=== PATIENT | male | born 1990 | race Caucasian/White ===

== ENCOUNTER 2017-04-20 09:11 | Emergency (ER) | payer OTHER ==
[~2017-04-20] VITALS: Ht 172.7 cm; Wt 105.0 kg
[~2017-04-20 09:11] MED LIST: ALBU0.63 NEB
[2017-04-20] MEDS ORDERED: DIAZEPAM 5 MG TABLET ONE (09:58)
[2017-04-20] MEDS ORDERED: KETOROLAC 30 MG/1 ML ONE (09:58)
[2017-04-20] MEDS ORDERED: KETOROLAC 60 MG/2 ML IM ONE (10:00)
[2017-04-20] MEDS ORDERED: DIAZEPAM 5 MG TABLET PO ONE (10:00)
[2017-04-20 10:18] LABS: HEMATOCRIT 46.3 % (39.2-51.8); HEMOGLOBIN 15.6 g/dL (13.7-18.0); WHITE BLOOD COUNT 7.7 x10^3/uL (3.4-10)
[2017-04-20 10:30] LABS: BLOOD UREA NITROGEN 9 mg/dL (7-18)
[2017-04-20 10:35] LABS: IS PT STATUS REG ER OR PRE ER? YES
[2017-04-20 11:31] VITALS: BP 125/75
== END 2017-04-20 11:33 | disposition home or self-care (01) ==
LOC: ED 11:20
DX: R07.89 Other chest pain (principal); F41.9 Anxiety disorder, unspecified; J45.909 Unspecified asthma, uncomplicated
CPT/HCPCS: 36415; 71020; 80048; 82040; 84484; 85025; 85379; 93005; 96372; 99285; J1885

== ENCOUNTER 2018-07-11 08:42 | Emergency (ER) | payer OTHER ==
[~2018-07-11] VITALS: Ht 172.7 cm; Wt 101.2 kg
[2018-07-11 09:44] LABS: BASOPHILS # (AUTO) 0.06 x10^3/uL (0-0.1); BASOPHILS % (AUTO) 1 % (0-1); EOSINOPHILS # (AUTO) 0.16 x10^3/uL (0-0.4); EOSINOPHILS % (AUTO) 2 % (1-7); LYMPHOCYTES # (AUTO) 2.16 x10^3/uL (1-3.4); LYMPHOCYTES % (AUTO) 23 % (22-44); MD NO; MEAN CORPUSCULAR HEMOGLOBIN 29.9 pg (27.5-34.5); MEAN CORPUSCULAR HGB CONC 33.6 g/dL (33.2-36.2); MEAN CORPUSCULAR VOLUME 88.8 fL (81-97); MEAN PLATELET VOLUME 8.6 fL (7.4-10.4); MONOCYTES # (AUTO) 0.69 x10^3/uL (0.2-0.8); MONOCYTES % (AUTO) 7 % (2-9); NEUTROPHILS # (AUTO) 6.38 x10^3/uL (1.8-6.8); NEUTROPHILS % (AUTO) 68 % (42-75); PLATELET COUNT 214 x10^3/uL (130-400); RED BLOOD COUNT 5.38 x10^6/uL (4.38-5.82); RED CELL DISTRIBUTION WIDTH 14.2 % (9.4-14.8)
[2018-07-11 09:58] LABS: ANION GAP 5 mmol/L (5-15); CALCIUM 8.9 mg/dL (8.5-10.1); CHLORIDE 110 mmol/L (98-107)
[2018-07-11 10:02] LABS: ALANINE AMINOTRANSFERASE 35 U/L (12-78); ALKALINE PHOSPHATASE 62 U/L (45-117); BILIRUBIN,TOTAL 0.2 mg/dL (0.2-1.0); CREATININE 0.94 mg/dL (0.7-1.3); TOTAL PROTEIN 7.3 g/dL (6.4-8.2)
[2018-07-11] MEDS ORDERED: DIAZEPAM 5 MG TABLET PO ONE (13:30)
[2018-07-11] MEDS ORDERED: ONDANSETRON ODT 4 MG PO ONE (13:30)
[2018-07-11] MEDS ORDERED: OXYcodone/APAP 5/325MG TABLET PO ONE (13:30)
[2018-07-11] MEDS ORDERED: KETOROLAC 30 MG/1 ML IM ONE (13:30)
[2018-07-11] MEDS ORDERED: KETOROLAC 30 MG/1 ML ONE (13:33)
[2018-07-11] MEDS ORDERED: ONDANSETRON ODT 4 MG ONE ×2 (13:33→14:30)
[2018-07-11] MEDS ORDERED: OXYcodone/APAP 5/325MG TABLET ONE (13:33)
[2018-07-11] MEDS ORDERED: DIAZEPAM 5 MG TABLET ONE (13:34)
[2018-07-11] MEDS ORDERED: ALBU90AE INH (13:42)
--- NOTE | 2018-07-11 13:50 | NUR ---
URINE COLLECTED AND SENT TO LAB. PATIENT MEDICATED AND RESTING IN THE RSEAL COVE USING PHONE. PT HAS NO COMPLAINTS AT THIS TIME. CALL BUTTON IN LAP.
[2018-07-11 14:19] LABS: CULTURE INDICATED? NO; MICROSCOPIC NOT IND
--- NOTE | 2018-07-11 14:25 | NUR ---
PT REPORTS THAT PAIN HAS IMPROVED FROM A 10/10 TO A 6/10 AFTER THE MEDICATION. PT STATES, "I CAN'T FEEL MUCH." RESTING IN POSITION OF COMFORT. DENIES NEEDS AT THIS TIME.
[2018-07-11] MEDS ORDERED: DICYCLOMINE 10 MG/ML, 2ML ONE (14:30)
[2018-07-11] MEDS ORDERED: BACITRACIN ZINC OINT 500U/GM, 0.9 GM ONE (14:30)
[2018-07-11 15:02] VITALS: BP 119/63
--- NOTE | 2018-07-11 15:03 | NUR ---
Patient/Caregiver given discharge instructions and they have confirmed that they understand the instructions. Patient ambulatory with steady gait.
== END 2018-07-11 15:04 | disposition home or self-care (01) ==
LOC: ED 13:45
DX: S39.012A Strain of muscle, fascia and tendon of lower back, initial encounter (principal); J45.909 Unspecified asthma, uncomplicated; K52.9 Noninfective gastroenteritis and colitis, unspecified; M54.40 Lumbago with sciatica, unspecified side; G89.29 Other chronic pain; Z76.0 Encounter for issue of repeat prescription; F41.1 Generalized anxiety disorder; X58.XXXA Exposure to other specified factors, initial encounter; Y93.89 Activity, other specified; Y92.89 Other specified places as the place of occurrence of the external cause; Y99.8 Other external cause status
CPT/HCPCS: 36415; 74021; 80053; 81003; 85025; 96372; 99284; J1885; Q0162

== ENCOUNTER 2019-11-04 11:52 | Emergency (ER) | payer OTHER ==
[~2019-11-04] VITALS: Ht 172.7 cm; Wt 101.2 kg
[~2019-11-04 11:52] MED LIST changes: +ALBU90AE INH
--- NOTE | 2019-11-04 12:23 | NUR ---
Pt complaining of lower back pain that radiates to his neck. States that he fell in the shower this morning due to his legs going "numb". Pt has hx of bulging disc in his back. Pt placed on monitor. MD at bedside.
[2019-11-04] MEDS ORDERED: HYDROmorphone 1 MG/ML, 1ML INJ IM ONE (13:00)
[2019-11-04] MEDS ORDERED: HYDROmorphone 1 MG/ML, 1ML INJ ONE (13:16)
[2019-11-04] MEDS ORDERED: DIAZEPAM 5 MG TABLET ONE ×2 (14:35→14:53)
[2019-11-04] MEDS ORDERED: OXYcodone/APAP 5/325MG TABLET ONE ×2 (14:36→14:53)
[2019-11-04 14:59] VITALS: BP 121/73
[2019-11-04] MEDS ORDERED: DIAZEPAM 5 MG TABLET PO ONE (15:00)
[2019-11-04] MEDS ORDERED: OXYcodone/APAP 5/325MG TABLET PO ONE (15:00)
== END 2019-11-04 15:02 | disposition home or self-care (01) ==
LOC: ED 12:30
DX: M51.26 Other intervertebral disc displacement, lumbar region (principal); M79.605 Pain in left leg; M51.86 Other intervertebral disc disorders, lumbar region; J45.909 Unspecified asthma, uncomplicated
CPT/HCPCS: 29505; 72131; 96372; 99284; J1170

== ENCOUNTER 2019-12-17 15:02 | Emergency (ER) | payer SELFPAY ==
[~2019-12-17] VITALS: Ht 170.2 cm; Wt 102.1 kg
[2019-12-17] MEDS ORDERED: MAALOX/HYOSCYAMINE/LIDOCAINE 45 ML BTL ONE (16:22)
[2019-12-17] MEDS ORDERED: MAALOX/HYOSCYAMINE/LIDOCAINE 45 ML BTL PO ONE (16:30)
[2019-12-17 16:55] LABS: ALANINE AMINOTRANSFERASE 23 U/L (12-78); ALBUMIN 4.1 g/dL (3.4-5.0); ANION GAP 4 mmol/L (5-15); BASOPHILS # (AUTO) 0.03 x10^3/uL (0-0.1); BASOPHILS % (AUTO) 0 % (0-1); CALCIUM 8.7 mg/dL (8.5-10.1); CHLORIDE 107 mmol/L (98-107); EOSINOPHILS % (AUTO) 1 % (1-7); LYMPHOCYTES # (AUTO) 1.94 x10^3/uL (1-3.4); LYMPHOCYTES % (AUTO) 25 % (22-44); MD NO; MEAN CORPUSCULAR HGB CONC 33.6 g/dL (33.2-36.2); MEAN CORPUSCULAR VOLUME 89.3 fL (81-97); MEAN PLATELET VOLUME 8.9 fL (7.4-10.4); MONOCYTES # (AUTO) 0.45 x10^3/uL (0.2-0.8); MONOCYTES % (AUTO) 6 % (2-9); NEUTROPHILS # (AUTO) 5.33 x10^3/uL (1.8-6.8); NEUTROPHILS % (AUTO) 68 % (42-75); PLATELET COUNT 223 x10^3/uL (130-400); RED BLOOD COUNT 5.43 x10^6/uL (4.38-5.82); RED CELL DISTRIBUTION WIDTH 14.1 % (9.4-14.8)
[2019-12-17 16:58] LABS: ALKALINE PHOSPHATASE 62 U/L (45-117); BILIRUBIN,TOTAL 0.4 mg/dL (0.2-1.0); TOTAL PROTEIN 7.5 g/dL (6.4-8.2)
--- NOTE | 2019-12-17 17:32 | NUR ---
TASK RN: PT RESTING IN [place] NOTED. DENIES NEED FOR PAIN/NAUSEA MEDICATIONS. CHART UP FOR RECHECK
[2019-12-17 18:17] VITALS: BP 123/78
== END 2019-12-17 18:19 | disposition home or self-care (01) ==
LOC: ED 17:38
DX: R10.13 Epigastric pain (principal); F17.210 Nicotine dependence, cigarettes, uncomplicated
CPT/HCPCS: 36415; 76700; 80053; 83690; 85025; 99284; 99406

== ENCOUNTER 2020-01-18 19:30 | Emergency (ER) | payer MEDICAID, OTHER ==
[~2020-01-18] VITALS: Ht 170.2 cm; Wt 102.0 kg
[2020-01-18 19:33] VITALS: BP 134/88
[2020-01-18] MEDS ORDERED: IBUPROFEN 600 MG TABLET ONE (20:28)
[2020-01-18] MEDS ORDERED: IBUPROFEN 600 MG TABLET PO ONE (20:30)
== END 2020-01-18 21:11 | disposition home or self-care (01) ==
LOC: ED 21:00
DX: M79.642 Pain in left hand (principal); J45.909 Unspecified asthma, uncomplicated; F17.200 Nicotine dependence, unspecified, uncomplicated
CPT/HCPCS: 99283

== ENCOUNTER 2020-03-16 10:25 | Emergency (ER) | payer MEDICAID ==
[~2020-03-16] VITALS: Ht 170.2 cm; Wt 110.9 kg
--- NOTE | 2020-03-16 11:57 | NUR ---
MATH PROFESSOR: PT TO ROOM FROM LOBBY AT THIS TIME. JUAN
[2020-03-16 12:31] LABS: MICROSCOPIC NOT IND
[2020-03-16] MEDS ORDERED: ONDANSETRON 2MG/ML, 2ML ONE (12:57)
[2020-03-16] MEDS ORDERED: HYDROmorphone 1 MG/ML, 1ML INJ ONE ×2 (12:57→13:59)
[2020-03-16] MEDS ORDERED: SODIUM CHLORIDE FLUSH 10ML SYR IVF ONE (13:00)
[2020-03-16] MEDS ORDERED: ONDANSETRON 2MG/ML, 2ML IVPush ONE (13:00)
[2020-03-16 13:03] LABS: BASOPHILS % (AUTO) 1 % (0-1); EOSINOPHILS % (AUTO) 2 % (1-7); LYMPHOCYTES # (AUTO) 1.89 x10^3/uL (1-3.4); LYMPHOCYTES % (AUTO) 26 % (22-44); MEAN CORPUSCULAR HEMOGLOBIN 29.5 pg (27.5-34.5); MEAN CORPUSCULAR HGB CONC 32.3 g/dL (33.2-36.2); MEAN CORPUSCULAR VOLUME 91.3 fL (81-97); MEAN PLATELET VOLUME 8.3 fL (7.4-10.4); MONOCYTES % (AUTO) 7 % (2-9); NEUTROPHILS # (AUTO) 4.73 x10^3/uL (1.8-6.8); NEUTROPHILS % (AUTO) 65 % (42-75); PLATELET COUNT 211 x10^3/uL (130-400); RED BLOOD COUNT 5.17 x10^6/uL (4.38-5.82)
[2020-03-16 13:04] LABS: BASOPHILS # (AUTO) 0.07 x10^3/uL (0-0.1); EOSINOPHILS # (AUTO) 0.14 x10^3/uL (0-0.4); MD NO
[2020-03-16] MEDS: HYDROmorphone 2 MG/ML, 1ML IVPush PRN ×2 (13:04→14:01)
--- NOTE | 2020-03-16 13:09 | NUR ---
MEDICATED FOR ABDOMINAL PAIN AND NAUSEA.
[2020-03-16 13:13] LABS: ALANINE AMINOTRANSFERASE 34 U/L (12-78); ALBUMIN 3.8 g/dL (3.4-5.0); ANION GAP 5 mmol/L (5-15); CALCIUM 8.9 mg/dL (8.5-10.1); CHLORIDE 110 mmol/L (98-107); CREATININE 0.73 mg/dL (0.7-1.3)
[2020-03-16 13:16] LABS: ALKALINE PHOSPHATASE 62 U/L (45-117); BILIRUBIN,TOTAL 0.2 mg/dL (0.2-1.0); TOTAL PROTEIN 7.2 g/dL (6.4-8.2)
--- NOTE | 2020-03-16 14:03 | NUR ---
BREAK RN: PT C/O OF INCREASING PAIN. 03/12, MED NOTED. CALL LIGHT W/I REACH
--- NOTE | 2020-03-16 14:12 | NUR ---
TO CT VIA [facility]
[2020-03-16] MEDS ORDERED: OMNIPAQUE 350 MG/ML, 100ML BOTTLE ONE (14:28)
--- NOTE | 2020-03-16 15:18 | NUR ---
MD AT BEDSIDE EXAMINING PT
[2020-03-16 16:57] VITALS: BP 115/64
--- NOTE | 2020-03-16 16:58 | NUR ---
DISCHARGE INSTRUCTIONS GIVEN, IV DISCONTINUED AND PT AMBULATED TO DISCHARGE WINDOW
== END 2020-03-16 17:00 | disposition home or self-care (01) ==
LOC: ED 11:30
DX: R10.84 Generalized abdominal pain (principal); R19.7 Diarrhea, unspecified; R11.0 Nausea; J45.909 Unspecified asthma, uncomplicated
CPT/HCPCS: 36415; 74177; 80053; 81003; 85025; 96374; 96375; 96376; 99285; J1170; J2405; Q9967

== ENCOUNTER 2020-04-06 15:13 | Emergency (ER) | payer MEDICAID ==
[~2020-04-06] VITALS: Ht 170.2 cm; Wt 104.0 kg
[2020-04-06 15:18] VITALS: BP 147/93
[2020-04-06] MEDS ORDERED: SODIUM CHLORIDE FLUSH 10ML SYR IVF ONE (15:30)
[2020-04-06 16:28] LABS: MICROSCOPIC NOT IND
[2020-04-06 16:58] LABS: BASOPHILS % (AUTO) 1 % (0-1); EOSINOPHILS % (AUTO) 2 % (1-7); LYMPHOCYTES % (AUTO) 28 % (22-44); MEAN CORPUSCULAR HGB CONC 33.7 g/dL (33.2-36.2); MEAN PLATELET VOLUME 8.7 fL (7.4-10.4); MONOCYTES % (AUTO) 7 % (2-9); NEUTROPHILS % (AUTO) 63 % (42-75); PLATELET COUNT 228 x10^3/uL (130-400); RED BLOOD COUNT 5.48 x10^6/uL (4.38-5.82); RED CELL DISTRIBUTION WIDTH 13.8 % (9.4-14.8)
[2020-04-06 17:00] LABS: ALANINE AMINOTRANSFERASE 37 U/L (12-78); ALBUMIN 4.2 g/dL (3.4-5.0); ANION GAP 5 mmol/L (5-15); CALCIUM 9.2 mg/dL (8.5-10.1); CHLORIDE 108 mmol/L (98-107); CREATININE 0.87 mg/dL (0.7-1.3)
[2020-04-06 17:03] LABS: ALKALINE PHOSPHATASE 66 U/L (45-117); BILIRUBIN,TOTAL 0.4 mg/dL (0.2-1.0); TOTAL PROTEIN 7.8 g/dL (6.4-8.2)
--- NOTE | 2020-04-06 17:05 | NUR ---
ICE SKATING INSTRUCTOR: PT AMBULATORY TO ROOM FROM LOBBY WITH STEADY GAIT WITH W[employer] PROJECT MANAGER AT THIS TIME
[2020-04-06 17:07] LABS: MD NO
--- NOTE | 2020-04-06 17:53 | NUR ---
TO CT VIA [facility]
[2020-04-06] MEDS ORDERED: KETOROLAC 30 MG/1 ML ONE (18:00)
[2020-04-06] MEDS ORDERED: OMNIPAQUE 350 MG/ML, 100ML BOTTLE ONE (18:00)
[2020-04-06] MEDS ORDERED: KETOROLAC 30 MG/1 ML IM ONE (18:00)
--- NOTE | 2020-04-06 18:54 | NUR ---
REPORT FROM CARYN CASTILLO
--- NOTE | 2020-04-06 19:45 | NUR ---
PATIENT HIT CALL LIGHT. CHECKED ON PATIENT. PATIENT WAS CRYING IN THE ROOM, PATIENT WAS ABLE TO BE REDIRECTED. PATIENT REQUESTED IV BE PULLED. PATIENT WOULD NOT TAKE EDUCATION REGARDING IV DISCHARGE AND NO DISCHARGE ORDER. PATIENT'S IV TAKEN OUT PER REQUEST OF PATIENT.
--- NOTE | 2020-04-06 19:51 | NUR ---
PATIENT UP TO RESTROOM WITHOUT COMPLICATIONS, STEADY GAIT IS PRESENT.
== END 2020-04-06 20:44 | disposition home or self-care (01) ==
LOC: ED 20:23
DX: R10.84 Generalized abdominal pain (principal); R11.2 Nausea with vomiting, unspecified; R10.13 Epigastric pain; J45.909 Unspecified asthma, uncomplicated
CPT/HCPCS: 36415; 74177; 76700; 80053; 81003; 83690; 85025; 96372; 99285; J1885; Q9967

== ENCOUNTER 2020-04-14 16:53 | Emergency (ER) | payer MEDICAID ==
[~2020-04-14] VITALS: Ht 170.2 cm; Wt 104.0 kg
[2020-04-14 18:04] LABS: BASOPHILS % (AUTO) 1 % (0-1); EOSINOPHILS % (AUTO) 2 % (1-7); LYMPHOCYTES % (AUTO) 28 % (22-44); MEAN CORPUSCULAR HGB CONC 33.6 g/dL (33.2-36.2); MEAN PLATELET VOLUME 8.6 fL (7.4-10.4); MONOCYTES % (AUTO) 8 % (2-9); NEUTROPHILS % (AUTO) 61 % (42-75); PLATELET COUNT 219 x10^3/uL (130-400); RED BLOOD COUNT 5.38 x10^6/uL (4.38-5.82)
[2020-04-14 18:11] LABS: MD NO
[2020-04-14 18:15] LABS: CHLORIDE 108 mmol/L (98-107)
[2020-04-14 18:22] LABS: ALANINE AMINOTRANSFERASE 26 U/L (12-78); ALKALINE PHOSPHATASE 64 U/L (45-117); ANION GAP 5 mmol/L (5-15); BILIRUBIN,TOTAL 0.4 mg/dL (0.2-1.0); CALCIUM 8.8 mg/dL (8.5-10.1); CREATININE 0.95 mg/dL (0.7-1.3); TOTAL PROTEIN 7.5 g/dL (6.4-8.2)
[2020-04-14 20:31] LABS: MICROSCOPIC NOT IND
[2020-04-14] MEDS ORDERED: MAALOX/HYOSCYAMINE/LIDOCAINE 45 ML BTL ONE (20:58)
[2020-04-14] MEDS ORDERED: MAALOX/HYOSCYAMINE/LIDOCAINE 45 ML BTL PO ONE (21:00)
--- NOTE | 2020-04-14 22:00 | NUR ---
PT D/C WITH D/C SUMMARY AND SCRIPTS AND A WORK NOTE PER PT REQUEST. PT DENIES ANY OTHER NEEDS PERTAINING TO THIS VISIT AND AMBULATES TO REGISTRATION DESK WITH STEADY GAIT FOR D/C HOME.
[2020-04-14 22:01] VITALS: BP 141/77
== END 2020-04-14 22:03 | disposition home or self-care (01) ==
LOC: ED 21:35
DX: K29.00 Acute gastritis without bleeding (principal); F17.210 Nicotine dependence, cigarettes, uncomplicated; J45.909 Unspecified asthma, uncomplicated
CPT/HCPCS: 36415; 80053; 81003; 83690; 85025; 99283; 99406